=== PATIENT | female | born 1955 | race Caucasian/White ===

== ENCOUNTER → 2022-02-20 | Outpatient (CLI) | payer MEDICARE ==
[~2022-02-20] MED LIST: BIOT10006 PO; CLON0.5T4 PO; CYCL-309 PO; DULA0.75 SQ; DULO60CA64 PO; ESTR1TAB17 PO; GOLI50VI IV; LEVO88CA2 PO; OMEP40CA21 PO; ROSU40TA21 PO; SPIR50TA PO; ZOLP10TA2 PO
== END ==
LOC: RAH 14:38
PROVIDERS: ATTEND Orthopaedic Surgery Sports Medicine
DX: M87.9 Osteonecrosis, unspecified (principal); M17.11 Unilateral primary osteoarthritis, right knee
CPT/HCPCS: 73700

== ENCOUNTER 2022-02-23 13:00 | Observation (INO) | payer MEDICARE ==
[~2022-02-23] VITALS: Ht 157.5 cm; Wt 77.1 kg
[2022-02-23 11:25] LABS: BASOPHILS % (AUTO) 0.8 % (0.0-5.0); EOSINOPHILS % (AUTO) 5.7 % (0.0-8.0); LYMPHOCYTES % (AUTO) 30.4 % (21.0-51.0); MEAN CORPUSCULAR HEMOGLOBIN 30.5 pg (27.0-33.0); MEAN CORPUSCULAR HGB CONC 32.2 g/dL (32.0-36.0); MEAN CORPUSCULAR VOLUME 94.5 fL (79-99); MONOCYTES % (AUTO) 11.2 % (3.0-13.0); NEUTROPHILS % (AUTO) 51.7 % (40.0-77.0); PLATELET COUNT (AUTO) 223 K/uL (130-400); RED BLOOD CELL COUNT(AUTO) 4.76 MIL/uL (4.00-5.50); RED CELL DISTRIBUTION WIDTH 14.1 % (11.0-15.5); WHITE BLOOD COUNT (AUTO) 5.3 K/uL (4.8-10.8)
[2022-02-23 11:28] LABS: CREATININE 0.8 mg/dL (0.5-1.5); POTASSIUM 4.3 mmol/L (3.5-5.1)
[2022-02-23 11:37] LABS: APPEARANCE,URINE Clear (CLEAR); BILIRUBIN,URINE Negative (NEGATIVE); COLOR,URINE Yellow (YELLOW); GLUCOSE, URINE (UA) Negative (NEGATIVE); KETONES,URINE Trace mg/dL (NEGATIVE); LEUKOCYTE ESTERASE ,URINE Negative (NEGATIVE); NITRATE,URINE Negative (NEGATIVE); OCCULT BLOOD,URINE Negative (NEGATIVE); PH,URINE 5.5 (5.0-8.0); PROTEIN,URINE Negative (NEGATIVE)
[2022-02-23 11:37] LABS: INR 0.94 (0.85-1.15); PROTHROMBIN TIME 10.3 SEC (9.6-11.6)
[2022-02-23 11:38] LABS: PARTIAL THROMBOPLASTIN TIME 25.6 SEC (26.3-35.5)
[2022-02-23 12:01] VITALS: BP 128/77
[2022-02-26] VITALS (25 sets, daily range): BP systolic 115–166; BP diastolic 62–158
[2022-02-26] MEDS ORDERED: CEFAZOLIN SODIUM 1 GM VIAL ONE ×3 (06:36→11:46)
[2022-02-26] MEDS ORDERED: 0.9%NACL 1000ML 1,000 ML IV ONE (06:36)
[2022-02-26] MEDS ORDERED: SUCCINYLCHOLINE 200MG/10ML SYR ONE (07:03)
[2022-02-26] MEDS ORDERED: LIDOCAINE PF 100MG/5ML (2%) SYRINGE 5ML ONE (07:03)
[2022-02-26] MEDS ORDERED: ROCURONIUM 10MG/1ML SYR 10 MG/ML ML ONE (07:04)
[2022-02-26] MEDS ORDERED: MIDAZOLAM HCL 1 MG/ML 2ML VIAL ONE (07:04)
[2022-02-26] MEDS ORDERED: ONDANSETRON 4MG INJ ONE (07:04)
[2022-02-26] MEDS ORDERED: DEXAMETHASONE SOD PHOSPHATE 10MG/ML 1ML VIAL ONE (07:04)
[2022-02-26] MEDS ORDERED: PROPOFOL 10 MG/ML 20ML VIAL IV ONE (07:04)
[2022-02-26] MEDS ORDERED: FENTANYL CITRATE PF 50 MCG/1 ML 5ML AMP IV ONE (07:04)
[2022-02-26] MEDS ORDERED: VANCOMYCIN 1G VIAL ONE (07:16)
[2022-02-26] MEDS ORDERED: TRANEXAMIC ACID 1000MG/10ML ONE (07:16)
[2022-02-26] MEDS ORDERED: FAMOTIDINE 20MG VIAL IV ONE (07:26)
[2022-02-26] MEDS ORDERED: PHENYLEPHRINE HCL 10 MG/ML 1ML VIAL IV ONE (07:32)
[2022-02-26] MEDS ORDERED: EPHEDRINE SULFATE 50 MG/ML AMPULE ONE (07:32)
[2022-02-26] MEDS ORDERED: DEXMEDETOMIDINE HCL 200 MCG/2 ML VIAL IV ONE (07:41)
[2022-02-26] MEDS: CEFAZOLIN SODIUM 1 GM VIAL IVP ONE ×2 (08:00→08:01)
[2022-02-26] MEDS ORDERED: MEPERIDINE-PF 25 MG/ML SYG ONE ×3 (09:11→10:43)
[2022-02-26] MEDS ORDERED: GLYCOPYRROLATE 1 MG/5 ML SYRINGE ONE (09:27)
[2022-02-26] MEDS ORDERED: NEOSTIGMINE 5MG/5ML SYR IV ONE (09:27)
[2022-02-26] MEDS ORDERED: POTASSIUM CHLORIDE 20MEQ/100ML 100 ML IV PRN (10:00)
[2022-02-26] MEDS ORDERED: TRANEXAMIC ACID 1000MG/10ML IV ONE (10:00)
[2022-02-26] MEDS ORDERED: LIDOCAINE HCL-MPF 1% 2ML VIAL IV PRN (10:00)
[2022-02-26] MEDS ORDERED: ACETAMINOPHEN 500 MG TABLET PO SCH (10:00)
[2022-02-26] MEDS ORDERED: ONDANSETRON 4MG INJ IVP PRN (10:00)
[2022-02-26] MEDS ORDERED: POTASSIUM CHLORIDE 10% ELIXIR 20 MEQ/15 ML UDCUP PO PRN (10:00)
[2022-02-26] MEDS ORDERED: 0.9%NACL 1000ML 1,000 ML IV SCH (10:00)
[2022-02-26] MEDS ORDERED: HYDROCODONE/ACETAMINOPHEN 5/325 MG TAB PO PRN (10:00)
[2022-02-26] MEDS ORDERED: KETOROLAC 30MG VIAL (30MG/ML) ONE (10:43)
[2022-02-26] MEDS: MORPHINE 4 MG SYG IVP PRN ×2 (11:55→17:38)
[2022-02-26] MEDS: HYDROCODONE/ACETAMINOPHEN 10/325 MG TAB PO PRN (13:55)
[2022-02-26] MEDS: CEFAZOLIN SODIUM 1 GM VIAL IVP SCH ×3 (13:57→23:27)
[2022-02-26] MEDS: ASPIRIN 81 MG EC TAB PO SCH (20:32)
[2022-02-26] MEDS: CELECOXIB 200 MG CAP PO SCH (20:33)
[2022-02-26] MEDS: PREGABALIN 25 MG CAP PO SCH (20:33)
[2022-02-26] MEDS: FAMOTIDINE 20MG TAB PO SCH (20:33)
[2022-02-26] MEDS: ACETAMINOPHEN 500 MG TABLET PO SCH ×2 (20:37→21:00)
[2022-02-27] MEDS: MORPHINE 4 MG SYG IVP PRN ×2 (02:56→10:02)
[2022-02-27] MEDS: HYDROCODONE/ACETAMINOPHEN 10/325 MG TAB PO PRN ×4 (03:28→16:28)
[2022-02-27 03:58] VITALS: BP 136/78
[2022-02-27 04:06] LABS: HEMATOCRIT 40.8 % (36-48); MEAN CORPUSCULAR HEMOGLOBIN 29.5 pg (27.0-33.0); MEAN CORPUSCULAR HGB CONC 31.6 g/dL (32.0-36.0); MEAN CORPUSCULAR VOLUME 93.2 fL (79-99); RED BLOOD CELL COUNT(AUTO) 4.38 MIL/uL (4.00-5.50); RED CELL DISTRIBUTION WIDTH 13.8 % (11.0-15.5); WHITE BLOOD COUNT (AUTO) 11.2 K/uL (4.8-10.8)
[2022-02-27 04:23] LABS: CREATININE 0.9 mg/dL (0.5-1.5); POTASSIUM 3.9 mmol/L (3.5-5.1)
[2022-02-27 07:15] VITALS: BP 127/74
[2022-02-27] MEDS ORDERED: POLYETHYLENE GLYCOL 3350 17 GM POWD.PACK PO SCH (09:00)
[2022-02-27] MEDS: CELECOXIB 200 MG CAP PO SCH (10:51)
[2022-02-27] MEDS: FAMOTIDINE 20MG TAB PO SCH (10:51)
[2022-02-27] MEDS: ASPIRIN 81 MG EC TAB PO SCH ×2 (10:51→16:27)
[2022-02-27] MEDS: ACETAMINOPHEN 500 MG TABLET PO SCH ×2 (10:52→14:00)
[2022-02-27] MEDS: PREGABALIN 25 MG CAP PO SCH (10:54)
[2022-02-27 11:15] VITALS: BP 119/79
[2022-02-27] MEDS ORDERED: KETOROLAC 30MG VIAL (30MG/ML) IVP PRN (11:30)
[2022-02-27 15:15] VITALS: BP 109/61
[2022-03-01] MEDS ORDERED: BISACODYL 10 MG SUPP.RECT RC PRN (10:00)
== END 2022-02-27 16:46 | disposition home or self-care (01) ==
LOC: EDUNIT# 13:00 → DAHIP 02-26 06:14 → 4BH 02-26 11:17 → EDSTATUS 02-26 13:00
PROVIDERS: ADMIT Orthopaedic Surgery Sports Medicine; ATTEND Orthopaedic Surgery Sports Medicine
DX: M87.9 Osteonecrosis, unspecified (principal); Z20.822 Contact with and (suspected) exposure to COVID-19; M25.561 Pain in right knee; E11.9 Type 2 diabetes mellitus without complications; M06.9 Rheumatoid arthritis, unspecified; Z87.39 Personal history of other diseases of the musculoskeletal system and connective tissue; Z79.899 Other long term (current) drug therapy; Z98.890 Other specified postprocedural states
CPT/HCPCS: 27447; 36415 ×2; 64447; 73560; 76942; 80048 ×2; 81003; 82948 ×4; 85025; 85027; 85610; 85730; 86850; 86900; 86901; 87635; 88305; 88311; 96374; 96375 ×2; 96376 ×2; 97039 ×4; 97116 ×2; 97161; 97530; A4215; A4221; A4222; A4223; A4649 ×2; A4663; A5120; A6223; C1776; C9803; G0378 ×28; J0330; J0690 ×4; J1100; J1885 ×2; J2001; J2175 ×3; J2250; J2270 ×4; J2370; J2405 ×2; J2704; J2710; J3010; J3370; J3490 ×6; J7030 ×3; 93005

== ENCOUNTER → 2022-04-16 | Outpatient (CLI) | payer MEDICARE | END | disposition home or self-care (01) | LOC: RAH 14:19 | PROVIDERS: ATTEND Family Medicine | DX: Z12.31 Encounter for screening mammogram for malignant neoplasm of breast (principal) | CPT/HCPCS: 77067 ==

== ENCOUNTER → 2024-05-18 | Outpatient (CLI) | payer MEDICARE ==
[~2024-05-18] MED LIST changes: -ROSU40TA21 PO; +ROSU40TA70 PO
== END | disposition home or self-care (01) ==
LOC: RAH 08:50
PROVIDERS: ATTEND Internal Medicine
DX: Z12.31 Encounter for screening mammogram for malignant neoplasm of breast (principal); R92.333 Mammographic heterogeneous density, bilateral breasts
CPT/HCPCS: 77067

== ENCOUNTER → 2025-05-19 | Outpatient (CLI) | payer MEDICARE ==
[~2025-05-19] MED LIST changes: -ROSU40TA70 PO; +ROSU40TA88 PO; +ZOLP-685 PO; -ZOLP10TA2 PO
== END | disposition home or self-care (01) ==
LOC: RAH 10:37
PROVIDERS: ATTEND Internal Medicine
DX: Z12.31 Encounter for screening mammogram for malignant neoplasm of breast (principal)
CPT/HCPCS: 77067